=== PATIENT | male | born 1960 | race Caucasian/White ===

== ENCOUNTER 2025-01-29 23:00 | Emergency (ER) | payer MEDICARE, SELFPAY ==
[2025-01-29 23:04] VITALS: PULSE 77; RESP 18; O2SAT 96; BMI 30.4
--- NOTE | 2025-01-29 23:12 | EKG_ITS ---
[facility] Test Date: 2025-01-29 Pat Name: MAIKEL MASON Department: Room: - Gender: Male Patient Services Technician: : 1960 Requested By: Saundra Krishna Order Number: [id number] Reading MD: Saundra Krishna Measurements Intervals Deshler Rate: 69 P: -15 RI: 235 QRS: -41 QRSD: 165 T: 106 QT: 431 QTc: 465 Interpretive Statements ELECTRONIC ATRIAL PACEMAKER ELECTRONIC VENTRICULAR PACEMAKER ABNORMAL RHYTHM ECG No previous ECG available for comparison /[id number]/[email or web address]/[id number]
[2025-01-29 23:39] VITALS: BP 138/84; PULSE 65; PULSE 70; RESP 15; RESP 17; TEMP 36.8; O2SAT 96
--- NOTE | 2025-01-29 23:40 | EDNOTE_ITS ---
ED Syncope RME/HPI General Chief Complaint: Syncope / Near Syncope Stated Complaint: SYNCOPE Time Seen by Provider: 01/29/25 23:29 Arrival date/time: 01/29/25 23:00 Limitations: no limitations RME / HPI RME / HPI narrative: Dr. [facility] Main ED Evaluation: 64yo male with a history of CHF, COPD on 3L, HTN, chronic renal insufficiency, tobacco smoker, on hospice BIBA presents to the ED for a chief complaint of syncope. [place], reporting his oxygen was only on 1L for 30 minutes due to not being plugged in, reporting the next thing he remembers was waking up on the floor. Patient denies any headache, neck pain, chest pain, abdominal pain, back pin, extremity pain or any other associated symptoms. Patient states he does not want any bloodwork done. Related Data Allergies Allergy/AdvReac Type Severity Reaction Status Date / Time codeine Allergy Verified 01/29/25 23:08 Review of Systems Review of Systems Systems Reviewed: All systems reviewed, normal except as documented Past Medical History Social History SMOKING STATUS: Former smoker ED Exam General Limitations: Present no limitations General appearance: Present alert and in no apparent distress Head Head exam: Present atraumatic Eye Eye exam: Present normal appearance, PERRL and EOMI ENT ENT exam: Present normal exam, normal oropharynx and mucous membranes moist Neck Neck exam: Present normal inspection, full ROM and trachea midline Chest Chest inspection: Present normal inspection and symmetric chest wall rise Respiratory Respiratory exam: Present normal lung sounds bilaterally Cardiovascular Cardiovascular exam: Present regular rate, normal rhythm and normal heart sounds Abdominal Exam Abdominal exam: Present soft and normal bowel sounds Extremities Exam Extremities exam: Present normal inspection and full ROM Back Exam Back exam: Present normal inspection and full ROM Neurological Exam Neurological exam: Present alert, oriented X3 and CN II-XII intact Psychiatric Psychiatric exam: Present normal affect and normal mood Skin Skin exam: Present warm, dry, intact and normal color Course Quality Measures none Orders Category Date Time Status 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 Syncope MDM Narrative MDM Narrative:: Patient is alert, awake, and oriented x3. Patient and his partner at the bedside both agree to not have any work-up done. Patient feels comfortable going home at this time. Patient data External records reviewed:: [facility] previous records (Per chart review, patient has no previous ED visits or admissions to this facility.) Clinical information provided by:: patient Social determinants that could affect healthcare access:: none Patient has the following chronic illnesses:: CHF, COPD, HTN, pacemaker How is presenting disease/condition affected by chronic disease/condition?: uneffected by Evaluation data The following diagnostics were reviewed and interpreted by me:: EKG tracing(s) Lab and/or radiology exams considered but not ordered:: none Interpretation Summary: EKG done at 2318, paced rhythm, rate of 69, QTc: 451, no previous EKG available for comparison, according to my interpretation. Medications / Prescriptions Medications or Prescriptions considered but not ordered:: none Medication administrations:: none Consultations Consultation(s) initiated? (list below): No Diagnosis Syncope Differential Diagnosis: other (See MDM narrative.) Most likely diagnosis given after review of the tests above:: see below Admission Indicated Admission indicated?: not indicated Admission Request Was there a request for admission?: No Disposition Plan Disposition Plan: Discharge Discharge Attestation Discharge Attestation: The patient and all family members were given an opportunity to ask questions and understood the discharge instructions. Discharge instructions specifically effects, indications for sooner follow up or return to the emergency department, and the expected course of current diagnosis. Patient condition: Stable Discharge Plan Plan Patient Disposition: HOME (Self Care) Patient condition on transfer: Stable Problem List Clinical Impression: Syncope Patient/Caregiver Discharge Instructions Print Language: Eritrean Stand Alone Forms: [employer] Award Info., Patient Portal Info Letter
== END 2025-01-30 01:36 | disposition home or self-care (01) ==
LOC: SERX 01-30 00:21
PROVIDERS: Emergency Provider Emergency Medicine
DX: R55 Syncope and collapse (principal); I13.0 Hypertensive heart and chronic kidney disease with heart failure and stage 1 through stage 4 chronic kidney disease, or unspecified chronic kidney disease; J44.9 Chronic obstructive pulmonary disease, unspecified; I50.9 Heart failure, unspecified; N18.9 Chronic kidney disease, unspecified; Z95.0 Presence of cardiac pacemaker; Z99.81 Dependence on supplemental oxygen; Z87.891 Personal history of nicotine dependence
CPT/HCPCS: 93005; 99283